=== PATIENT | female | born 1965 | race Hispanic/Latino ===

== ENCOUNTER 2017-07-29 22:20 | Emergency (ER) | payer MEDICARE ==
[2017-07-29] MEDS ORDERED: TETANUS/DIPHTHERIA TOXOID [ADULT] 0.5 ML VIAL IM ONE (23:31)
[2017-07-30] MEDS ORDERED: DOXYCYCLINE HYCLATE 100 MG TABLET PO ONE (00:04)
== END 2017-07-30 01:09 | disposition home or self-care (01) ==
LOC: EDH 22:20
DX: S41.132A Puncture wound without foreign body of left upper arm, initial encounter (principal); S41.131A Puncture wound without foreign body of right upper arm, initial encounter; W55.01XA Bitten by cat, initial encounter; Y93.89 Activity, other specified; Y92.098 Other place in other non-institutional residence as the place of occurrence of the external cause; Y99.8 Other external cause status
CPT/HCPCS: 90471; 90714

== ENCOUNTER 2017-10-25 13:50 | Emergency (ER) | payer MEDICARE ==
[2017-10-25] MEDS ORDERED: SODIUM CHLORIDE 0.9% 1000ML 1,000 ML IV ONE (17:40)
== END 2017-10-25 14:23 | disposition home or self-care (01) ==
LOC: EDH 13:50
DX: F41.9 Anxiety disorder, unspecified (principal); Z88.1 Allergy status to other antibiotic agents; Z88.8 Allergy status to other drugs, medicaments and biological substances
CPT/HCPCS: 99284; J7030